=== PATIENT | female | born 1975 | race Two or more races ===

== ENCOUNTER 2021-10-05 12:21 | Day surgery (SDC) | payer MEDICARE, MEDICAID ==
[~2021-10-05] VITALS: Ht 152.4 cm; Wt 71.7 kg
[2021-10-05] MEDS ORDERED: normal saline 1000ml 1,000 ML IV PRN (12:40)
[2021-10-05 12:48] VITALS: BP 136/74
[2021-10-05] MEDS ORDERED: FLUT1BLS3 INH (12:56)
[2021-10-05] MEDS ORDERED: MONT10TA21 PO (12:56)
[2021-10-05] MEDS ORDERED: FOLI0.8T19 PO (12:56)
[2021-10-05] MEDS ORDERED: HYDR-3965 PO (12:56)
[2021-10-05] MEDS ORDERED: ASPI81TA52 PO (12:56)
[2021-10-05] MEDS ORDERED: LORA10TA7 PO (12:56)
[2021-10-05] MEDS ORDERED: CARSR60C PO (12:56)
[2021-10-05] MEDS ORDERED: [UNRECOGNIZED DRUG - CODE] PO (12:56)
[2021-10-05] MEDS ORDERED: LEVO100T PO (12:56)
[2021-10-05] MEDS ORDERED: CINA30TA2 PO (12:59)
[2021-10-05] MEDS ORDERED: CALC667S PO (13:00)
[2021-10-05 13:24] LABS: BASOPHILS % (AUTO) 0.3 % (0-1); EOSINOPHILS % (AUTO) 0.2 % (0-6); HEMATOCRIT 31.5 % (35.0-45.0); HEMOGLOBIN 10.2 g/dl (12.0-16.0); LYMPHOCYTES # (AUTO) 1.7 X10'3 (1.1-4.8); LYMPHOCYTES % (AUTO) 12.5 % (21-51); MEAN CORPUSCULAR HEMOGLOBIN 32.2 PG (27.0-31.0); MEAN CORPUSCULAR HGB CONC 32.5 g/dL (33.0-36.5); MEAN CORPUSCULAR VOLUME 98.9 FL (78-98); MEAN PLATELET VOLUME 8.3 FL (7.4-10.4); MONOCYTES # (AUTO) 0.7 X10'3 (0-0.9); MONOCYTES % (AUTO) 5.5 % (2-12); NEUTROPHILS % (AUTO) 81.5 % (42-75); PLATELET COUNT 224 X10'3 (140-440); RED BLOOD COUNT 3.18 X10'6 (4.20-5.60); RED CELL DISTRIBUTION WIDTH 18.3 % (11.5-14.5); WHITE BLOOD COUNT 13.5 X10'3 (4.5-11.0)
[2021-10-05 13:35] LABS: ALBUMIN 3.3 G/DL (3.4-5.0); ANION GAP 13 (8-16); BLOOD UREA NITROGEN 83 MG/DL (7-18); BUN/CREATININE RATIO 7.4 (6.6-38.0); CHLORIDE 100 MMOL/L (99-107); CREATININE 11.19 MG/DL (0.40-0.90); GLUCOSE 91 MG/DL (70-104); POTASSIUM 5.4 MMOL/L (3.5-5.1); SODIUM 139 MMOL/L (135-145); TOTAL CARBON DIOXIDE 25.7 MMOL/L (24-32); eGFR 4 ML/MIN
[2021-10-05] MEDS ORDERED: midazolam 1 mg/ML 2ml injection ONE (13:53)
[2021-10-05] MEDS ORDERED: fentaNYL/PF 50MCG/1 ML 2ML syringe ONE (13:53)
[2021-10-05] MEDS ORDERED: heparin 1,000unit/ml 10ml vial 10 ML ONE (13:53)
[2021-10-05] MEDS ORDERED: LIDOcaine 1%/PF 5ML 10 MG/ML VIAL ONE ×2 (13:53)
[2021-10-05 15:15] VITALS: BP 132/91
[2021-10-05] MEDS ORDERED: HYDROcodone/acetaminophen 5mg/325mg tablet PO PRN (15:25)
[2021-10-05 15:30] VITALS: BP 127/77
[2021-10-05 15:45] VITALS: BP 122/75
[2021-10-05 16:00] VITALS: BP 104/75
[2021-10-05 16:15] VITALS: BP 123/86
== END 2021-10-05 16:20 | disposition home or self-care (01) ==
LOC: SSTAY O 12:21
PROVIDERS: ATTEND Radiology Diagnostic Radiology
DX: T82.898A Other specified complication of vascular prosthetic devices, implants and grafts, initial encounter (principal); I12.9 Hypertensive chronic kidney disease with stage 1 through stage 4 chronic kidney disease, or unspecified chronic kidney disease; Y83.8 Other surgical procedures as the cause of abnormal reaction of the patient, or of later complication, without mention of misadventure at the time of the procedure; N18.9 Chronic kidney disease, unspecified; Z79.82 Long term (current) use of aspirin; Z88.8 Allergy status to other drugs, medicaments and biological substances; Z79.899 Other long term (current) drug therapy
CPT/HCPCS: 36415; 36558; 76937; 77001; 80048; 85025; 99152; 99153; C1750; C1769; C1894; J1644; J2250; J3010; J3490; J7030; A4620; A9270